=== PATIENT | female | born 1985 | race African-American/Black ===

== ENCOUNTER 2017-05-05 14:47 | Outpatient (CLI) | payer OTHER ==
[2017-05-07 08:20] LABS: Chlamydia by PCR Not Detected (NotDetected); GC by PCR Not Detected (NotDetected)
== END 2017-05-05 14:48 | disposition home or self-care (01) ==
LOC: HPCALD 14:47
PROVIDERS: ATTEND Family Medicine
DX: Z01.419 Encounter for gynecological examination (general) (routine) without abnormal findings (principal)
CPT/HCPCS: 87480; 87491; 87510; 87591; 87660; 88142; G0123